=== PATIENT | male | born 2000 | race Two or more races ===

== ENCOUNTER 2022-11-15 21:58 | Emergency (ER) | payer BC ==
[~2022-11-15] VITALS: Ht 172.7 cm; Wt 93.0 kg
[2022-11-15 22:06] VITALS: BP 147/76; PULSE 110; RESP 16; TEMP 98
[2022-11-15] MEDS: DEXAMETHASONE 4 MG TABLET PO ONE ×2 (22:52→22:58)
[2022-11-16] MEDS ORDERED: AMOX500C2 PO (16:27)
[2022-11-16] MEDS ORDERED: ONDA4TAB96 PO (16:27)
[2022-11-16] MEDS ORDERED: DICY20TA95 PO (16:27)
[2022-11-16] MEDS ORDERED: HYDR-4808 PO (16:27)
== END 2022-11-15 23:05 | disposition home or self-care (01) ==
LOC: EMS 22:00
DX: J02.9 Acute pharyngitis, unspecified (principal)
CPT/HCPCS: 99281; J8540; Z7502

== ENCOUNTER 2022-11-16 15:55 | Emergency (ER) | payer BC ==
[~2022-11-16] VITALS: Ht 172.7 cm; Wt 83.0 kg
[2022-11-16] MEDS ORDERED: ONDA4TAB96 PO (16:27)
[2022-11-16] MEDS ORDERED: DICY20TA95 PO (16:27)
[2022-11-16] MEDS ORDERED: HYDR-4808 PO (16:27)
[2022-11-16] MEDS ORDERED: AMOX500C2 PO (16:27)
[2022-11-17] MEDS ORDERED: SODIUM CHLORIDE 0.9% 1,000 ML IV ONE ×2 (00:45→01:45)
[2022-11-17] MEDS ORDERED: LORazepam 2 MG/ML VIAL IVP ONE (00:45)
[2022-11-17] MEDS ORDERED: 0.9% SODIUM CHLORIDE 10 ML SYRINGE IVP PRN (00:45)
[2022-11-17 01:07] VITALS: TEMP 100.2
[2022-11-17 01:14] LABS: BASOPHILS % (AUTO) 0.3 % (0.0-2.0); EOSINOPHILS % (AUTO) 0 % (1.0-6.0); HEMATOCRIT 48.8 % (41-53); HEMOGLOBIN 16.5 g/dL (13.5-17.5); LYMPHOCYTES # (AUTO) 1.5 K/uL (1.0-4.8); LYMPHOCYTES % (AUTO) 15.5 % (22.0-44.0); MEAN CORPUSCULAR HEMOGLOBIN 30.5 pg (26.0-34.0); MEAN CORPUSCULAR HGB CONC 33.9 G/dL (31.0-37.0); MEAN CORPUSCULAR VOLUME 90 fL (80-100); MONOCYTES # (AUTO) 0.3 K/uL (0.1-1.0); MONOCYTES % (AUTO) 3.2 % (2.0-9.0); PLATELET COUNT (AUTO) 228 K/uL (150-450); RED BLOOD CELL COUNT(AUTO) 5.41 MIL/uL (4.50-5.90); RED CELL DISTRIBUTION WIDTH 13.2 % (11.5-14.5); WHITE BLOOD COUNT (AUTO) 9.9 K/uL (4.5-11.0)
[2022-11-17 01:27] LABS: APPEARANCE,URINE CLEAR (CLEAR); BILIRUBIN,URINE NEGATIVE (NEGATIVE); COLOR,URINE COLORLESS (YELLOW); GLUCOSE, URINE (UA) NEGATIVE (NEGATIVE); KETONES,URINE 40-60 mg/dL (NEGATIVE); LEUKOCYTE ESTERASE ,URINE NEGATIVE (NEGATIVE); NITRATE,URINE NEGATIVE (NEGATIVE); OCCULT BLOOD,URINE NEGATIVE (NEGATIVE); PROTEIN,URINE NEGATIVE (NEGATIVE); SPECIFIC GRAVITIY, URINE 1.004 (1.003-1.030); UROBILINOGEN,URINE <=1.0 mg/dL (<=1.0)
[2022-11-17 01:32] LABS: AMPHET/METH SCREEN,URINE NEGATIVE (NEGATIVE); BARBITURATE SCREEN, URINE NEGATIVE (NEGATIVE); BENZODIAZEPINES SCREEN,URINE NEGATIVE (NEGATIVE); CANNABINOID SCREEN,URINE NEGATIVE (NEGATIVE); COCAINE SCREEN,URINE NEGATIVE (NEGATIVE); METHADONE SCREEN, URINE NEGATIVE (NEGATIVE); OPIATE SCREEN,URINE NEGATIVE (NEGATIVE); PHENCYCLIDINE SCREEN,URINE NEGATIVE (NEGATIVE)
[2022-11-17 01:35] LABS: ALCOHOL, URINE DRUG SCREEN NEGATIVE (NEGATIVE)
[2022-11-17 01:36] LABS: ANION GAP 19 mmol/L (8-16); CALCIUM, TOTAL 9.2 mg/dL (8.8-10.5); CARBON DIOXIDE 20 mmol/L (22-29); CHLORIDE 93 mmol/L (98-107); CREATININE 0.84 mg/dL (0.60-1.30); GLOMERULAR FILTR. RATE CALC > 60 mL/min (>60); GLUCOSE,RANDOM 145 mg/dL (70-110); POTASSIUM 3.2 mmol/L (3.5-5.1); SODIUM SERUM 132 mmol/L (136-145); UREA NITROGEN, BLOOD 5 mg/dL (7-18)
[2022-11-17] MEDS ORDERED: POTASSIUM CHLORIDE 20 MEQ ER TABLET PO ONE (01:45)
[2022-11-17 01:47] LABS: TROPONIN I-HIGH SENSITIVITY Less Than 4 ng/L (<76)
[2022-11-17 01:49] LABS: LACTIC ACID 1.4 mmol/L (0.4-2.0)
[2022-11-17 02:09] LABS: ALANINE AMINOTRANSFERASE 18 U/L (12-78); ALBUMIN 4.5 g/dL (3.4-5.0); ALKALINE PHOSPHATASE 116 U/L (46-116); ASPARTATE AMINOTRANSFERASE 19 U/L (15-37); BILIRUBIN,TOTAL 0.6 mg/dL (0.1-1.0); CREATINE KINASE, TOTAL ONLY 92 U/L (39-308); TOTAL PROTEIN, SERUM 9.1 g/dL (6.4-8.2)
[2022-11-17 04:11] VITALS: BP 125/88; PULSE 100; RESP 14
== END 2022-11-17 05:07 | disposition home or self-care (01) ==
LOC: EMS 15:55
DX: E86.0 Dehydration (principal); E87.6 Hypokalemia; R29.0 Tetany; R06.4 Hyperventilation
CPT/HCPCS: 99285; 80053; 81003; 82550; 82962; 83605; 83735; 84484; 85025; 36415; 93005; 80307; 84145; 74176; 96374; 71045; 96361; J2060; J7030